=== PATIENT | female | born 1970 | race Caucasian/White ===

== ENCOUNTER 2022-03-16 10:12 | Day surgery (SDC) | payer OTHER ==
[~2022-03-16] VITALS: Ht 160 cm; Wt 78.3 kg
--- NOTE | 2022-03-16 11:39 | NUR ---
Ambulatory in Day Surgery. History, Chart, Medications and Allergies reviewed before start of procedure.Lungs clear T/O to Auscultation. Patient confirms NPO status and agrees with scheduled surgery. Pre-Op teaching done. Pt verbalizes understanding. Patient States Post-Procedure ride home has been arranged.
[2022-03-16] MEDS ORDERED: LEVSOD25 PO (11:44)
--- NOTE | 2022-03-16 12:26 | NUR ---
03/16/22 1226 Jaclyn Sierra NO PREOP ANTIBIOTICS ORDERED
--- NOTE | 2022-03-16 13:47 | NUR ---
1345 ASSUMED CAR OF PATIENT. PT VERY SLEEPY BUT ABRUTLY OPENS EYES WITHOUT FOCUSING THEN LAUGHING AND CRYING INTERMITANTLY. 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 ABLE TO SMILE AND OPEN MOUTH ON COMMAND. HAVING OCCASIONAL DRY HEAVING BP ELEVATED WELL.RN CALLED DR MACIEL. HE ADVISED PT NEEDS TIME FOR ANESTHESIA TO WEAR OFF. IV FLUIDS RATE WIDE OPEN. 1400 REGLAN GIVEN 1415 PT RESTING QUIETLY NOW, AT BEDSIDE
--- NOTE | 2022-03-16 14:24 | NUR ---
CARINA FERGUSON ASSUMED CARE OF PT AT 1345 SEE CHARTING UNDER MISTY RICE RN.
--- NOTE | 2022-03-16 15:33 | NUR ---
THIS RN BEEN GIVEN REPORT, ASSUMING CARE OF PT NOW.
--- NOTE | 2022-03-16 15:56 | NUR ---
PT CONTINUES TO HAVE NAUSEA WHICH SHE APPEARS TO HAVE DRY HEAVES. MAILING JOGGER ASSISTING WITH PT. PT REPORTS THAT SHE JUST DOESN'T FEEL RIGHT. PT REPORTS THAT SHE FEELS NUMB. PT ABLE TO MOVE ALL EXTREMITIES. PT APPEARED TO HAVE PASSED OUT WHILE IN BED LYING DOWN. PT WOKE UP AFTER TALKING TO PT AND HAVING HER SMELL SOME ALCOHOL SWABS. DR CORTES NOTIFIED, DISCUSSED PT'S STATUS, SEE ORDER. LAB NOTIFIED OF STAT LAB.
--- NOTE | 2022-03-16 16:08 | NUR ---
LAB RECENTLY HERE TO DRAW LAB. PT TOLERATING WELL. PT REPORTS PAIN 6/10 NOW AFTER HAVING DRY HEAVES. PT REPORTS BOTH PAINFULL AND HAVING NAUSEA. PT RESTING QUIETLY WITH EYES CLOSED (GLASSES ON) WHEN NOT DISTURBED AT THIS TIME. HERE AT PT'S BEDSIDE.
--- NOTE | 2022-03-16 16:23 | NUR ---
VSS. PT SLEEPING, AWAKENED WITH TOUCH AND VERBAL CUES. PT STATED THE WORD HEAVEN AGAIN SHE DID EARLIER TODAY WHEN WE WERE TELLING HER THAT DR. CORTES WAS COMING TO SEE HER HERE IN THE HOSPITAL. PT WENT RIGHT BACK TO SLEEP. RESP E/U. AT BEDSIDE.
--- NOTE | 2022-03-16 16:31 | NUR ---
DR CORTES RECENTLY HERE TO SEE PT. PT RESTING QUIETLY WITH EYES CLOSED. DR CORTES TALKED WITH PT'S . LAB WAS STILL PENDING. REPORTED THAT SHE WOULD BE BACK TO SEE PT.
[2022-03-16 16:48] LABS: Albumin, Blood 3.7 g/dL (3.4-5.0); Albumin/Globulin Ratio 1.2 (0.8-1.8); Bilirubin, Total 0.4 mg/dL (0.1-1.0); Bun/Creatinine Ratio 18.7 (12.0-20.0); Calcium, Blood 8.7 mg/dL (8.5-10.1); Creatinine, Blood 0.7 mg/dL (0.40-1.00); Globulin, Blood 3.1 g/dL (2.2-4.0); Potassium, Blood 3.8 mmol/L (3.5-5.5); Total Protein, Blood 6.8 g/dL (6.4-8.2)
--- NOTE | 2022-03-16 16:54 | NUR ---
PT ABLE TO SIT ON SIDE OF BED WITHOUT HAVING DRY HEAVES. FEMALE RN WAS ABLE TO ASSIST PT INTO BATHROOM, WHICH FEMALE RN STAYED IN BATHROOM WITH HER. PT WAS ABLE TO VOID. PT HAD STEADY GAIT TO BATHROOM. PT APPEARS TO BE MUCH MORE ORIENTED THAN SHE WAS. SHE IS TALKING CLEAR SENTENCES. PT IS ABLE TO TALK ABOUT HER FAMILY AND KIDS. PT REPORTS FEELING LIKE HER TUMMY IS RUMBLING. PT GIVEN SALTINE CRACKERS. PT REPORTS THAT SHE IS FEELING BETTER. PT WAS ASSISTED WITH DRESSING WHICH SHE TOLERATED WELL.
--- NOTE | 2022-03-16 16:58 | NUR ---
DR RON HERE TO SEE PT. DISCUSSED PT FEELING BETTER, SHOWN HER LABWORK.
--- NOTE | 2022-03-16 17:13 | NUR ---
DR RON BEEN HERE TO SEE PT. PT CONTINUES TO BE MUCH MORE ALERT. PT HAS BEEN UP TO BATHROOM (WITH ASSIST FROM FEMALE RN). PT REPORTS NAUSEA AND PAIN DOING MUCH BETTER. PT DENIES PAIN. DR RON REPORTS DISCUSSING PT'S STATUS WITH DR CORTES. PT AND HER REPORTS SHE IS DOING MUCH BETTER AND IS READY FOR PT TO GO HOME NOW. DR RON AGREES THAT PT IS READY TO GO HOME. Patient up to Ambulate independently. Gait steady. Discharge instructions reviewed with patient. Patient verbalizes understanding. Copy given to patient to take home. Patient States Post-Procedure ride home has been arranged. Discharged via wheelchair to private car for ride home.
== END 2022-03-16 17:13 | disposition home or self-care (01) ==
LOC: ORSCSDS 10:12 → ORSCMMR 10:15 → ORSCSDS 17:13
PROVIDERS: Obstetrics & Gynecology
PROC: 0UB98ZX Excision of Uterus, Via Natural or Artificial Opening Endoscopic, Diagnostic (ICD-10-PCS; principal; 2022-03-16 11:45)
PROC: 0UDB8ZX Extraction of Endometrium, Via Natural or Artificial Opening Endoscopic, Diagnostic (ICD-10-PCS; principal; 2022-03-16 11:45)
DX: N92.0 Excessive and frequent menstruation with regular cycle (principal); N84.0 Polyp of corpus uteri; E03.9 Hypothyroidism, unspecified; Z79.899 Other long term (current) drug therapy
CPT/HCPCS: 36415; 80053; 88305; A9270; J1100; J1885; J2250; J2405; J2765; J3010; J7120

== ENCOUNTER 2023-04-06 11:48 | Day surgery (SDC) | payer BC ==
[2023-04-04 09:34] LABS: BASOPHILS ABSOLUTE AUTO 0.04 K/mm3 (0.00-0.23); BASOPHILS PERCENT AUTO 1 % (0-2); EOSINOPHILS ABSOLUTE AUTO 0.08 K/mm3 (0.00-0.68); EOSINOPHILS PERCENT AUTO 1 % (0-6); Hematocrit 35.3 % (33.0-51.0); Hemoglobin 11.1 g/dL (11.5-16.0); IMMATURE GRAN ABSOLUTE AUTO 0.05 K/mm3 (0.00-0.10); IMMATURE GRAN PERCENT AUTO 1 % (0-1); LYMPHOCYTES ABSOLUTE AUTO 2.28 K/mm3 (0.84-5.20); LYMPHOCYTES PERCENT AUTO 32 % (21-46); MONOCYTES PERCENT AUTO 8 % (4-13); Mean Corpuscular HGB 27.2 pg (26.0-34.0); Mean Corpuscular HGB Conc 31.4 g/dL (31.5-36.5); Mean Corpuscular Volume 87 fL (80-100); Mean Platelet Volume 9.6 fL (9.1-12.4); NEUTROPHILS ABSOLUTE AUTO 4.08 K/mm3 (1.96-9.15); NEUTROPHILS PERCENT AUTO 57 % (41-73); Platelet Count 346 K/mm3 (150-400); RDW Coefficient Variation 12.9 % (11.7-14.2); RDW Standard Deviation 40.8 fL (35.1-46.3); Red Blood Cell Count 4.08 M/mm3 (3.80-5.20); White Blood Cell Count 7.13 K/mm3 (4.00-11.30)
[2023-04-06] VITALS (23 sets, daily range): BP systolic 108–157; BP diastolic 63–94
[~2023-04-06] VITALS: Ht 160 cm; Wt 78.3 kg
[~2023-04-06 11:48] MED LIST: LEVSOD25 PO
--- NOTE | 2023-04-06 13:36 | NUR ---
PRE-OP NOTE PT A&OX4, BREATHING RA, COOPERATIVE BUT VERY ANXIOUS, AT BEDSIDE. GLASSES TO PACU. BROUGHT PERSONAL BELONGINGS TO CAR, NOTHING STORED ON STRETCHER. Ambulatory in Day Surgery. ABDOMEN DISTENDED AND SLIGHTLY TENDER. Patient confirms NPO status and agrees with scheduled surgery. Pre-Op teaching done. Pt verbalizes understanding.PT CURRENTLY BLEEDING VAGINALLY.
--- NOTE | 2023-04-06 15:07 | NUR ---
04/06/23 1507 LINDA WHITNEY PER VERBAL ORDER FROM DR. MUNIZ, ANCEF 2GRAM WAS ADMINISTERED VIA IVPB AT 1441. PROCEDURE PERFORMED BY DR. CASAS.
--- NOTE | 2023-04-06 17:46 | NUR ---
DR CASAS INFORMED RN THAT PT TAKES A LONG TIME TO WAKE UP FROM ANASTESIA,
[2023-04-07 04:17] VITALS: BP 150/81
--- NOTE | 2023-04-07 05:27 | NUR ---
SHIFT SUMMARY POD1 LAVH. LAP SITES X4, PARTNER, ADHESIVE GLUE CLOSURE. AOX4, KENNETH PAD WITH SCANT BLOOD. LYNCH DRAINING CLEAR YELLOW URINE T/O NIGHT AND DC'D THIS AM. IV ABX AND FLUIDS TKO. TOLERATING PO INTAKE. MEDICATED WITH PERCOCET AND TOLERATED WELL. REPOSITIONED T/O NIGHT. AWAITING FIRST VOID AFTER LYNCH DC. VSS. CALL LIGHT IN REACH.
[2023-04-07 06:31] LABS: BASOPHILS ABSOLUTE AUTO 0.02 K/mm3 (0.00-0.23); BASOPHILS PERCENT AUTO 0 % (0-2); EOSINOPHILS PERCENT AUTO 0 % (0-6); Hematocrit 31.9 % (33.0-51.0); Hemoglobin 10.1 g/dL (11.5-16.0); IMMATURE GRAN ABSOLUTE AUTO 0.06 K/mm3 (0.00-0.10); IMMATURE GRAN PERCENT AUTO 0 % (0-1); LYMPHOCYTES ABSOLUTE AUTO 0.87 K/mm3 (0.84-5.20); LYMPHOCYTES PERCENT AUTO 6 % (21-46); MONOCYTES ABSOLUTE AUTO 0.78 K/mm3 (0.16-1.47); MONOCYTES PERCENT AUTO 5 % (4-13); Mean Corpuscular HGB 26.8 pg (26.0-34.0); Mean Corpuscular HGB Conc 31.7 g/dL (31.5-36.5); Mean Corpuscular Volume 85 fL (80-100); Mean Platelet Volume 9.6 fL (9.1-12.4); NEUTROPHILS ABSOLUTE AUTO 12.79 K/mm3 (1.96-9.15); NEUTROPHILS PERCENT AUTO 88 % (41-73); Platelet Count 334 K/mm3 (150-400); RDW Coefficient Variation 12.9 % (11.7-14.2); RDW Standard Deviation 39.3 fL (35.1-46.3); Red Blood Cell Count 3.77 M/mm3 (3.80-5.20); White Blood Cell Count 14.52 K/mm3 (4.00-11.30)
[2023-04-07 07:55] VITALS: BP 127/61
--- NOTE | 2023-04-07 16:19 | NUR ---
DISCHARGE SUMMARY POD1 ROBOTIC TOTAL LAVH, A/OX4, VSS, TOLERATING PO, AMBULATING INDEPENDENTLY, VOIDING WELL. DISCUSSED DISCHARGE INFORMATION WITH HER AND HER INCLUDING HOME CARE, MEDICATIONS, AND FOLLOW UP APPOINTMENTS. IV ACCESS REMOVED X2 AND NO OTHER DEVICES IN PLACE. NO QUESTIONS AT THIS TIME. PT ESCORTED OUT VIA WC TO PRIVATE AUTO TO GO HOME.
== END 2023-04-07 15:30 | disposition home or self-care (01) ==
LOC: ORSCMMR 11:48 → ORD 13:15 → ORSCMMR 13:15 → SURS 18:51 → ORSCMMR 04-07 15:30 → ORD 05-21 12:15
PROVIDERS: Obstetrics & Gynecology
PROC: 0U5F4ZZ Destruction of Cul-de-sac, Percutaneous Endoscopic Approach (ICD-10-PCS; principal; 2023-04-06 13:15)
PROC: 0UT97ZZ Resection of Uterus, Via Natural or Artificial Opening (ICD-10-PCS; principal; 2023-04-06 13:15)
PROC: 0UT77ZZ Resection of Bilateral Fallopian Tubes, Via Natural or Artificial Opening (ICD-10-PCS; principal; 2023-04-06 13:15)
DX: N92.1 Excessive and frequent menstruation with irregular cycle (principal); N80.329 Endometriosis of the posterior cul-de-sac, unspecified depth; N94.6 Dysmenorrhea, unspecified; N94.10 Unspecified dyspareunia; R10.2 Pelvic and perineal pain; F41.9 Anxiety disorder, unspecified; Z85.3 Personal history of malignant neoplasm of breast; N94.0 Mittelschmerz; E03.9 Hypothyroidism, unspecified; E28.2 Polycystic ovarian syndrome; Z79.899 Other long term (current) drug therapy
CPT/HCPCS: 36415; 84702; 85025; 86850; 86900; 86901; 88305; 88307; A9270; J0690; J1100; J1170; J1580; J1885; J2250; J2405; J2704; J3010; J7050; J7120

== ENCOUNTER 2024-07-06 07:08 | Emergency (ER) | payer BC ==
[~2024-07-06] VITALS: Ht 157.5 cm; Wt 77.1 kg
[2024-07-06] MEDS ORDERED: Ondansetron HCl 2 MG / ML 2ML Vial IV ONE (08:45)
[2024-07-06] MEDS ORDERED: NS 1,000 ML IV ONE (08:49)
[2024-07-06 08:58] LABS: Chloride (POC) 107 mmol/L (98-108); Creatinine (POC) 0.8 mg/dL (0.6-1.0); Glucose (ISTAT POC) 156 mg/dL (70-99); Hemoglobin (POC) 16.7 g/dL (12.0-16.0); Potassium (POC) 3.8 mmol/L (3.5-5.5); Sodium (POC) 141 mmol/L (135-148); Total CO2 (POC) 22 mmol/L (21-32)
[2024-07-06] MEDS ORDERED: NS 1,000 ML IV SCH (09:00)
[2024-07-06] MEDS ORDERED: FentaNYL Citrate 50 MCG/ML 2 ML Injection IV ONE (09:00)
[2024-07-06 09:02] LABS: Base Excess Venous -1.8 mmol/L; Bicarbonate Venous 23.7 mmol/L (24.0-30.0); PCO2 Venous 33.3 mmHg (38-42); pH Blood Venous 7.44 (7.34-7.37)
[2024-07-06 09:10] LABS: BASOPHILS ABSOLUTE AUTO 0.06 K/mm3 (0.00-0.23); BASOPHILS PERCENT AUTO 0 % (0-2); EOSINOPHILS ABSOLUTE AUTO 0.09 K/mm3 (0.00-0.68); EOSINOPHILS PERCENT AUTO 1 % (0-6); Hematocrit 47.4 % (33.0-51.0); Hemoglobin 16.7 g/dL (11.5-16.0); IMMATURE GRAN ABSOLUTE AUTO 0.13 K/mm3 (0.00-0.10); IMMATURE GRAN PERCENT AUTO 1 % (0-1); LYMPHOCYTES ABSOLUTE AUTO 1.23 K/mm3 (0.84-5.20); LYMPHOCYTES PERCENT AUTO 8 % (21-46); MONOCYTES ABSOLUTE AUTO 0.98 K/mm3 (0.16-1.47); MONOCYTES PERCENT AUTO 6 % (4-13); Mean Corpuscular HGB 31.7 pg (26.0-34.0); Mean Corpuscular HGB Conc 35.2 g/dL (31.5-36.5); Mean Corpuscular Volume 90 fL (80-100); Mean Platelet Volume 9.1 fL (9.1-12.4); NEUTROPHILS ABSOLUTE AUTO 13.26 K/mm3 (1.96-9.15); NEUTROPHILS PERCENT AUTO 84 % (41-73); Platelet Count 269 K/mm3 (150-400); RDW Coefficient Variation 12.4 % (11.7-14.2); RDW Standard Deviation 41.2 fL (35.1-46.3); Red Blood Cell Count 5.26 M/mm3 (3.80-5.20); White Blood Cell Count 15.75 K/mm3 (4.00-11.30)
[2024-07-06] MEDS ORDERED: Pantoprazole Sodium 40 MG Injection IV ONE (09:40)
[2024-07-06 09:42] LABS: Albumin/Globulin Ratio 1.1 (0.8-1.8); Bilirubin, Total 0.9 mg/dL (0.1-1.0); Bun/Creatinine Ratio 28.9 (12.0-20.0); Calcium, Blood 9.3 mg/dL (8.5-10.1); Creatinine, Blood 0.62 mg/dL (0.40-1.00); Globulin, Blood 3.5 g/dL (2.2-4.0); Magnesium, Blood 2.4 mg/dL (1.6-2.4); Potassium, Blood 3.8 mmol/L (3.5-5.5); Total Protein, Blood 7.5 g/dL (6.4-8.2)
[2024-07-06] MEDS ORDERED: Morphine Sulfate 4 MG/1 ML Injection IV ONE (10:00)
[2024-07-06] MEDS ORDERED: Metoclopramide HCl 5MG / ML 2ML Vial IV ONE (10:00)
[2024-07-06] MEDS ORDERED: Pantoprazole Sodium 40 MG in NS 50 ML IV SCH (10:35)
[2024-07-06 12:30] LABS: Hematocrit 43.1 % (33.0-51.0); Hemoglobin 14.7 g/dL (11.5-16.0)
[2024-07-06 14:19] VITALS: BP 124/96
== END 2024-07-06 14:27 | disposition short-term general hospital (02) ==
LOC: ER 07:08
PROVIDERS: Physician Assistant; Student in an Organized Health Care Education/Training Program
DX: K92.0 Hematemesis (principal); R10.13 Epigastric pain; D72.829 Elevated white blood cell count, unspecified; N39.0 Urinary tract infection, site not specified; K59.00 Constipation, unspecified; E03.9 Hypothyroidism, unspecified; Z79.899 Other long term (current) drug therapy; Z88.0 Allergy status to penicillin; Z88.8 Allergy status to other drugs, medicaments and biological substances
CPT/HCPCS: 74177; 76705; 80047; 80053; 82803; 82947; 83605; 83690; 83735; 85014; 85018; 85025; 93005; 93010; J2270; J2405; J2470; J2765; J3010; J7030; Q9967

== ENCOUNTER 2024-12-14 13:16 | Emergency (ER) | payer OTHER ==
[~2024-12-14] VITALS: Ht 157.5 cm; Wt 68.0 kg
[2024-12-14 13:51] LABS: BASOPHILS ABSOLUTE AUTO 0.06 K/mm3 (0.00-0.23); BASOPHILS PERCENT AUTO 1 % (0-2); EOSINOPHILS ABSOLUTE AUTO 0.08 K/mm3 (0.00-0.68); EOSINOPHILS PERCENT AUTO 1 % (0-6); Hematocrit 51.1 % (33.0-51.0); Hemoglobin 17.8 g/dL (11.5-16.0); IMMATURE GRAN ABSOLUTE AUTO 0.04 K/mm3 (0.00-0.10); IMMATURE GRAN PERCENT AUTO 0 % (0-1); LYMPHOCYTES ABSOLUTE AUTO 3.56 K/mm3 (0.84-5.20); LYMPHOCYTES PERCENT AUTO 31 % (21-46); MONOCYTES ABSOLUTE AUTO 0.97 K/mm3 (0.16-1.47); MONOCYTES PERCENT AUTO 8 % (4-13); Mean Corpuscular HGB 31.1 pg (26.0-34.0); Mean Corpuscular HGB Conc 34.8 g/dL (31.5-36.5); Mean Corpuscular Volume 89 fL (80-100); Mean Platelet Volume 9.1 fL (9.1-12.4); NEUTROPHILS ABSOLUTE AUTO 6.82 K/mm3 (1.96-9.15); NEUTROPHILS PERCENT AUTO 59 % (41-73); Platelet Count 371 K/mm3 (150-400); RDW Standard Deviation 39.1 fL (35.1-46.3); Red Blood Cell Count 5.73 M/mm3 (3.80-5.20); White Blood Cell Count 11.53 K/mm3 (4.00-11.30)
[2024-12-14] MEDS ORDERED: Midazolam HCl 1MG / ML 2ML Vial ONE (13:53)
[2024-12-14] MEDS ORDERED: Midazolam HCl 1MG / ML 2ML Vial IV ONE (13:55)
[2024-12-14 14:14] LABS: Albumin, Blood 4.3 g/dL (3.4-5.0); Albumin/Globulin Ratio 1.1 (0.8-1.8); Bilirubin, Total 1.2 mg/dL (0.1-1.0); Bun/Creatinine Ratio 16.8 (12.0-20.0); Calcium, Blood 9.8 mg/dL (8.5-10.1); Creatinine, Blood 0.72 mg/dL (0.40-1.00); Globulin, Blood 3.9 g/dL (2.2-4.0); Potassium, Blood 3.6 mmol/L (3.5-5.5); Total Protein, Blood 8.2 g/dL (6.4-8.2)
[2024-12-14] MEDS ORDERED: NS 1,000 ML IV SCH (14:50)
[2024-12-14 14:53] LABS: International Normalized Ratio 1.04; Prothrombin Time Results 11.4 Sec (9.7-11.5)
[2024-12-14 14:54] LABS: Source, Urine Straight Cath
[2024-12-14 15:00] LABS: Appearance, Urine Hazy (Clear); Bilirubin, Urine Neg (Neg); Blood, Urine 1+ (Neg); Color, Urine Yellow (P-Yellow); Glucose Qualitative, Urine Neg (Neg); Ketones, Urine 4+ (Neg); Leukocyte Esterase, Urine Neg (Neg); Nitrite, Urine Neg (Neg); Protein, Urine 2+ (Neg); Specific Gravity, Urine 1.015 (1.003-1.022); Urobilinogen, Urine NORM (Normal)
[2024-12-14 15:04] LABS: Ethanol (Alcohol), Blood, Med <3 mg/dL; Free Thyroxine 1.37 ng/dL (0.70-1.60); Salicylate <1.7 mg/dL (2.8-20.0)
[2024-12-14 15:09] LABS: Acetaminophen, Random <2.0 ug/mL (10.0-30.0)
[2024-12-14 15:10] LABS: Bacteria Many /hpf; Mucus Heavy (0-Heavy); Squamous Epithelial Cells Few /hpf (Few); White Blood Cells, Urine 0-2 /hpf (0-5)
[2024-12-14 15:18] LABS: U Amphetamine Screen Not Detected; U Barbituate Screen Not Detected; U Benzodiazapine Screen Not Detected; U Buprenorphine Screen Not Detected; U Cannabinoids Screen Not Detected; U Cocaine Screen Not Detected; U Methadone Screen Not Detected; U Methamphetamine Screen Not Detected; U Opiates Screen Not Detected; U Oxycodone Screen Not Detected; U Phencyclidine Screen Not Detected
[2024-12-14] MEDS ORDERED: Ondansetron HCl 2 MG / ML 2ML Vial IV ONE (15:40)
[2024-12-14 16:59] LABS: Bacterial Vaginosis PCR Negative (NEGATIVE); Candida glabrata-krusei, PCR NOT DETECTED (NOT DETECT)
[2024-12-14] MEDS ORDERED: Meclizine HCl 25 MG Tab PO ONE (17:25)
[2024-12-14 17:45] VITALS: BP 109/73
[2024-12-14 18:00] LABS: Candida Group, PCR DETECTED (NOT DETECT)
[2024-12-14] MEDS ORDERED: Fluconazole 100 MG Tab PO ONE (18:05)
[2024-12-14] MEDS ORDERED: MECL25 PO (18:09)
== END 2024-12-14 18:40 | disposition home or self-care (01) ==
LOC: ER 13:16
PROVIDERS: Physician Assistant; Student in an Organized Health Care Education/Training Program
DX: R42 Dizziness and giddiness (principal); B37.31 Acute candidiasis of vulva and vagina; E03.9 Hypothyroidism, unspecified; Z88.0 Allergy status to penicillin; Z88.8 Allergy status to other drugs, medicaments and biological substances; Z79.890 Hormone replacement therapy
CPT/HCPCS: 51701; 70450; 76705; 80053; 80320; 81001; 81515; 83690; 83735; 84439; 84443; 84484; 85025; 85610; 85730; 87086; 93005; 93010; 96361; 96374; 96375; 99285-25; A9270; G0480; J2250; J2405; J7030